=== PATIENT | female | born 1970 | race Caucasian/White ===

== ENCOUNTER 2019-10-02 17:24 | Emergency (ER) | payer OTHER ==
[~2019-10-02] VITALS: Ht 160 cm; Wt 83.5 kg
[2019-10-02 17:26] VITALS: BP 118/58
--- NOTE | 2019-10-02 17:32 | NUR ---
PT AMBULATED TO BED 03 WITH EVEN STEADY GAIT.
--- NOTE | 2019-10-02 17:38 | NUR ---
C/O BL BACK PAIN X 4 DAYS. DENIES INJURY. STATES URINARY FREQUENCY, DYSURIA. DENIES URGENCY, FEVER. PRIOR TO ONSET OF BACK PAIN PT REPORTS CONSTIPATION. SAW PCP WHO RX PREDNISONE FOR THIS PROBLEM, PT TAKING TO SOME RELIEF. DOES NOT KNOW DX FROM PCP. PATIENT STATES PAIN OF 8/10 AT THIS TIME. PATIENT POSITIONED FOR COMFORT; HOB ELEVATED; BEDRAILS UP X1; BED DOWN. ER MD MADE AWARE OF PT STATUS.
[2019-10-02] MEDS ORDERED: LACTULOSE 20 GM/30 ML UDC PO ONE (17:45)
[2019-10-02] MEDS ORDERED: KETOROLAC 60 MG/2 ML VIAL IM ONE (17:45)
--- NOTE | 2019-10-02 17:55 | NUR ---
X RAY AT BEDSIDE
[2019-10-02 18:21] LABS: APPEARANCE,URINE CLEAR (CLEAR); BILIRUBIN,URINE NEGATIVE (NEGATIVE); BLOOD, URINE NEGATIVE (NEGATIVE); COLOR,URINE YELLOW (YELLOW); LEUKOCYTE ESTERASE ,URINE NEGATIVE (NEGATIVE); NITRITE, URINE NEGATIVE (NEGATIVE); UGLUCOSE NEGATIVE (NEGATIVE)
[2019-10-02 18:47] VITALS: BP 121/62
--- NOTE | 2019-10-02 18:47 | NUR ---
Patient discharged with v/s stable. Written and verbal after care instructions given and explained. Patient alert, oriented and verbalized understanding of instructions. Ambulatory with steady gait. All questions addressed prior to discharge. ID band removed. Patient advised to follow up with PMD. Rx of COLACE & VOLTAREN given. Patient educated on indication of medication including possible reaction and side effects. Opportunity to ask questions provided and answered.
== END 2019-10-02 18:47 | disposition home or self-care (01) ==
LOC: MED 17:24
DX: M54.5 Low back pain (principal); R35.0 Frequency of micturition; R30.0 Dysuria
CPT/HCPCS: 74018; 81003; 96372; 99284; J1885; Q0092